=== PATIENT | female | born 2000 | race Caucasian/White ===

== ENCOUNTER 2020-11-28 17:02 | Inpatient (IN) ==
[2020-11-28] MEDS ORDERED: Naloxone 0.4 MG/ML INJ IVP PRN (17:18)
[2020-11-28] MEDS ORDERED: Famotidine 20 MG/2 ML VIAL IVP PRN (17:18)
[2020-11-28] MEDS ORDERED: Azithromycin 500 MG in 0.9 % Sodium Chloride 250 ML IVPB ONE (17:18)
[2020-11-28] MEDS ORDERED: Ondansetron 4 MG/2 ML VIAL IVP PRN (17:18)
[2020-11-28] MEDS ORDERED: *HR* Nalbuphine 10 MG/ML AMPUL IV PRN (17:18)
[2020-11-28] MEDS ORDERED: Lidocaine 1% 20 ML MDV INFILT PRN (17:18)
[2020-11-28] MEDS ORDERED: miSOPROStoL 25 MCG TABLET VG PRN (17:18)
[2020-11-28] MEDS ORDERED: Metoclopramide 10 MG/2 ML VIAL IVP PRN (17:18)
[2020-11-28] MEDS ORDERED: Ringers Solution, Lactated 1,000 ML IVC SCH (17:30)
[2020-11-28 17:58] LABS: Basophils # 0.1 K/mcL (0.0-0.2); Basophils % 0.4 %; Eosinophils # 0.1 K/mcL (0.0-0.6); Eosinophils % 0.5 %; Hematocrit 35.2 % (35.3-44.9); Hemoglobin 11.5 g/dL (11.5-15.4); Immature Granulocytes % 1.2 % (0-4); Lymphocytes # 2.2 K/mcL (0.6-4.6); Mean Corpuscular HGB Conc 32.7 g/dL (31.6-35.5); Mean Corpuscular Hemoglobin 27.4 pg (28.0-33.3); Mean Platelet Volume 10.7 fL (9.4-12.4); Monocytes # 0.8 K/mcL (0.0-1.3); Monocytes % 6.1 %; Platelet Count 273 K/mcL (140-400); Red Blood Count 4.19 M/mcL (3.82-4.97); Red Cell Distribution Width 13.2 % (11.5-14.5); Segmented Neutrophils % 73.8 %; White Blood Count 12.2 K/mcL (4.3-11.1)
[2020-11-28 18:02] LABS: Amphetamine Screen,Urine Negative ng/mL (Cutoff=1000); Barbiturate Screen,Urine Negative ng/mL (Cutoff=200); Benzodiazepines Screen,Urine Negative ng/mL (Cutoff=200); Cannabinoid Screen,Urine Positive ng/mL (Cutoff = 50); Cocaine Screen,Urine Negative ng/mL (Cutoff= 300); Opiate Screen,Urine Negative ng/mL (Cutoff=300); Phencyclidine Screen,Urine Negative ng/mL (Cutoff=25)
[2020-11-28] MEDS ORDERED: Bupivacaine-MPF 0.25% 10 ML VIAL EP ONE (22:18)
[2020-11-28] MEDS ORDERED: EPHEDrine 50 MG/ML VIAL IVP PRN (22:18)
[2020-11-28] MEDS ORDERED: *HR* FentaNYL (PF) 100 MCG/2 ML VIAL EP ONE (22:18)
[2020-11-28] MEDS ORDERED: Epidural Premix (fent/bupiv) 110 ML EP SCH (22:30)
[2020-11-28] MEDS ORDERED: miSOPROStoL 25 MCG TABLET PO PRN (22:34)
[2020-11-29] MEDS ORDERED: Oxytocin 20 units/ LR 1000 mL 20 UNIT/1,000 ML BAG IVC SCH ×2 (03:00→11:04)
[2020-11-29] MEDS ORDERED: Rho Immune Globulin 1,500 UNIT SYRINGE IM PRN (11:04)
[2020-11-29] MEDS ORDERED: Benzocaine/Menthol 56 GM AEROSOL SPRAY TP PRN (11:04)
[2020-11-29] MEDS ORDERED: Lanolin 7 G OINT...G. TP PRN (11:04)
[2020-11-29] MEDS ORDERED: Acetaminophen 325 MG TABLET PO PRN (11:04)
[2020-11-29] MEDS: Prenatal Vit/FA 1 EACH TABLET PO SCH (11:24)
[2020-11-29] MEDS: Ibuprofen 600 MG TABLET PO PRN (20:33)
[2020-11-30 08:03] VITALS: BP 102/62
[2020-11-30] MEDS: Ibuprofen 600 MG TABLET PO PRN (08:26)
[2020-11-30] MEDS: Prenatal Vit/FA 1 EACH TABLET PO SCH (08:27)
== END 2020-11-30 17:19 | disposition home or self-care (01) | DRG 807 ==
LOC: 1NENULAB 17:02 → 1NENUOBS 11-29 11:02
PROVIDERS: ADMIT Advanced Practice Midwife; ATTEND Advanced Practice Midwife